=== PATIENT | female | born 1975 | race Caucasian/White ===

== ENCOUNTER 2019-08-29 09:23 | Outpatient (CLI) | payer BC, SELFPAY ==
--- NOTE | ~2019-08-29 | US_ITS ---
EXAMINATION: US venous doppler [facility] DATE: 08/29/2019 10:22 INDICATION: Left calf pain. TECHNIQUE: Grayscale ultrasound images without and with compression and Doppler ultrasound images of the left lower extremity veins were obtained. COMPARISON: Ultrasound 06/07/2019 FINDINGS: The visualized portions of left common femoral vein, profunda (deep) femoral vein, femoral vein, popl iteal vein, posterior tibial veins, and greater saphenous vein outflow are patent. There is thrombus in the left peroneal veins. IMPRESSION: 1. Deep vein thrombosis involving the left peroneal veins. Reviewed, dictated and finalized at location A. PATIONAL MEDICINE SPECIALIST
== END 2019-08-29 09:24 | disposition home or self-care (01) ==
PROVIDERS: PCP Family Medicine; Visit Provider Internal Medicine Hematology & Oncology
DX: I82.452 Acute embolism and thrombosis of left peroneal vein (principal)
CPT/HCPCS: 93971

== ENCOUNTER 2019-09-03 09:18 | Outpatient (CLI) | payer BC, SELFPAY ==
[2019-09-03 09:53] LABS: INR 1.6; Prothrombin Time 18.5 Seconds (11.1-14.7)
== END 2019-09-03 09:19 | disposition home or self-care (01) ==
PROVIDERS: PCP Family Medicine; Visit Provider Internal Medicine Hematology & Oncology
DX: I82.412 Acute embolism and thrombosis of left femoral vein (principal); Z79.01 Long term (current) use of anticoagulants
CPT/HCPCS: 36415; 85610

== ENCOUNTER 2019-12-01 08:11 | Outpatient (CLI) | payer BC, SELFPAY ==
--- NOTE | ~2019-12-01 | US_ITS ---
EXAMINATION: US venous doppler [facility] DATE: 12/01/2019 09:01 INDICATION: Left lower limb swelling. TECHNIQUE: Grayscale ultrasound images without and with compression and Doppler ultrasound images of the left lower extremity veins were obtained. COMPARISON: Ultrasound 08/29/2019 FINDINGS: The visualized portions of left common femoral vein, profunda (deep) femoral vein, popliteal vein, pe roneal veins, and greater saphenous vein outflow are patent. There is thrombus in left femoral and po sterior tibial veins. IMPRESSION: 1. Deep vein thrombosis involving left femoral and posterior tibial veins. Reviewed, dictated and finalized at location A.
== END 2019-12-01 08:12 | disposition home or self-care (01) ==
PROVIDERS: PCP Family Medicine; Visit Provider Internal Medicine Hematology & Oncology
DX: I82.412 Acute embolism and thrombosis of left femoral vein (principal); I82.442 Acute embolism and thrombosis of left tibial vein
CPT/HCPCS: 93971

== ENCOUNTER 2019-12-01 08:59 | Outpatient (RCR) | payer BC, SELFPAY ==
[2019-09-08 11:04] LABS: INR 1.5
[2019-09-15 11:55] LABS: INR 2.2; Prothrombin Time 24.1 Seconds (11.1-14.7)
[2019-09-22 11:04] LABS: INR 1.8
[2019-10-06 11:54] LABS: INR 1.6; Prothrombin Time 18.3 Seconds (11.1-14.7)
[2019-10-20 09:50] LABS: INR 3.2; Prothrombin Time 32.3 Seconds (11.1-14.7)
[2019-11-17 12:26] LABS: INR 2.8; Prothrombin Time 28.9 Seconds (11.1-14.7)
[2019-12-01 10:49] LABS: INR 2.9; Prothrombin Time 29.4 Seconds (11.1-14.7)
== END 2019-12-07 23:59 | disposition home or self-care (01) ==
LOC: ANHLAB 08:59
PROVIDERS: PCP Family Medicine; Visit Provider Internal Medicine Hematology & Oncology
DX: I82.412 Acute embolism and thrombosis of left femoral vein (principal); Z79.01 Long term (current) use of anticoagulants
CPT/HCPCS: 36415; 85610

== ENCOUNTER 2020-01-19 12:53 | Outpatient (RCR) | payer BC, SELFPAY ==
[2019-12-22 12:02] LABS: INR 3.9; Prothrombin Time 37.7 Seconds (11.1-14.7)
[2020-01-05 09:44] LABS: INR 4.1; Prothrombin Time 39.2 Seconds (11.1-14.7)
[2020-01-19 16:45] LABS: INR 2.8; Prothrombin Time 28.9 Seconds (11.1-14.7)
== END 2020-03-21 23:59 | disposition home or self-care (01) ==
LOC: ANHLAB 12:53
PROVIDERS: PCP Family Medicine; Visit Provider Internal Medicine Hematology & Oncology
DX: Z51.81 Encounter for therapeutic drug level monitoring (principal); I82.412 Acute embolism and thrombosis of left femoral vein; Z79.01 Long term (current) use of anticoagulants
CPT/HCPCS: 36415; 85610

== ENCOUNTER 2020-02-07 08:24 | Outpatient (CLI) | payer BC, SELFPAY ==
[2020-02-07 08:53] LABS: Basophils Percent Auto 0.6 % (0.2-1.2); Eosinophils Absolute Auto 0.1 K/mm3 (0-0.3); Hematocrit 41.1 % (37.0-47.0); Hemoglobin 13.5 g/dL (12.0-15.0); Immature Granulocyte Absolute 0.01 K/mm3 (0.00-0.031); Immature Granulocyte Percent A 0.1 % (0-0.5); Lymphocytes Absolute Auto 1.78 K/mm3 (0.9-3.2); Mean Corpuscular HGB Conc 32.8 g/dl (32-36); Mean Corpuscular Hemoglobin 27.8 pg (26-34); Mean Corpuscular Volume 84.6 fl (80-100); Mean Platelet Volume 10.1 fl (7.4-10.4); Monocytes Absolute Auto 0.6 K/mm3 (0.1-0.6); Monocytes Percent Auto 7.9 % (2.6-8.5); Neutrophils Absolute Auto 4.6 K/mm3 (1.3-6.7); Neutrophils Percent Auto 64.4 % (45.5-73.1); Platelet Count Result 240 k/mm3 (150-375); Red Blood Count 4.86 M/mm3 (4.2-5.4); Red Cell Distribution Width 13.3 % (11.5-14.5); White Blood Count 7.1 K/mm3 (4.5-10.0)
[2020-02-07 12:43] LABS: Alanine Aminotransferase 31 U/L (4-35); Albumin Level 4.3 g/dL (3.5-5.1); Alkaline Phosphatase 72 U/L (38-126); Anion Gap 8 mmol/L (8-16); Aspartate Amino Transferase 30 U/L (14-36); Bilirubin,Total 0.6 mg/dL (0.2-1.3); Blood Urea Nitrogen 13 mg/dL (7-17); Calcium 9.5 mg/dL (8.4-10.2); Carbon Dioxide 28 mmol/L (22-30); Chloride 97 mmol/L (98-107); Cholesterol 175 mg/dL (0-200); Estimated Glomerular Filt Rate > 60; Glucose 98 mg/dL (65-105); HDL Direct 61 mg/dL; INR 2.4; Potassium 4.2 mmol/L (3.4-5.0); Prothrombin Time 25.9 Seconds (11.1-14.7); Sodium 133 mmol/L (137-145); Triglycerides 46 mg/dL (<150)
[2020-02-07 12:54] LABS: LDL Cholesterol Direct 99 mg/dL
== END 2020-02-07 08:25 | disposition home or self-care (01) ==
PROVIDERS: PCP Family Medicine; Visit Provider Internal Medicine Hematology & Oncology
DX: Z00.00 Encounter for general adult medical examination without abnormal findings (principal)
CPT/HCPCS: 36415; 80053; 80061; 84443; 85025; 85610

== ENCOUNTER 2020-04-11 10:21 | Outpatient (CLI) | payer BC, SELFPAY | END 2020-04-11 10:22 | disposition home or self-care (01) | LOC: ANHLAB 10:23 | PROVIDERS: PCP Family Medicine; Visit Provider Internal Medicine Hematology & Oncology | DX: I82.412 Acute embolism and thrombosis of left femoral vein (principal) | CPT/HCPCS: 36415; 85520 ==

== ENCOUNTER → 2021-04-10 09:28 | Outpatient (CLI) | payer BC, SELFPAY ==
--- NOTE | ~2021-04-10 | MR_ITS ---
EXAMINATION: MR ankle RT wo con DATE: 04/10/2021 10:44 INDICATION: Posterior tibial tendinitis with right foot and ankle pain TECHNIQUE: Magnetic resonance imaging (MRI) of the right ankle was performed without intravenous cont rast. Sequences included sagittal, coronal, and axial proton-density weighted fast spin echo without and with fat saturation. COMPARISON: Right foot and ankle radiographs dated 03/28/2021 FINDINGS: Medial ankle ligaments: Deep deltoid ligament is normal. There is thickening, increased signal and surrounding edema along th e anterior aspect of the superficial deltoid ligament consistent with partial tear. There is also par tial tear of the superomedial component of the spring ligament complex which appears attenuated dista lly at its navicular insertion. The medial plantar oblique and infra plantar lateral components of th e spring ligament complex remain normal. Lateral ankle ligaments: The anterior and posterior inferior tibiofibular ligaments are normal. The anterior talofibular and c alcaneofibular ligaments are normal. Wall thickening and mild increased signal along the posterior ta lofibular ligament without surrounding edema to suggest acute injury which could represent scarring r elated to chronic sprain. Tendons: Achilles tendon is normal. The peroneus longus and brevis tendons are normal. The tibialis anterior a nd extensor hallucis longus and extensor digitorum longus tendons are normal. The flexor digitorum lo ngus and flexor hallucis longus tendons are normal. There is fluid extending along the tibialis poste rior tendon sheath consistent with mild tenosynovitis. There is fusiform thickening of the distal tib ialis posterior tendon consistent with mild tendinopathy with longitudinal split tear centered at the level of the tip of the medial malleolus. Plantar fascia: Small plantar cranial spur with mild thickening of the proximal plantar aponeurosis. There is mild [place] rrounding soft tissue edema. Findings consistent with mild acute on chronic plantar fasciitis. Bones/other: Bone alignment is normal. There is mild marrow edema at the tip of the lateral malleolus and at the p osterolateral margin of the talus on either side of the posterior talofibular ligament with adjacent small os trigonum but without abnormal marrow signal. Which is of indeterminate etiology or significa nce. Otherwise normal bone marrow signal throughout with no fracture or pathologic marrow replacing p rocess.. Mild osteoarthritis at the talonavicular joint with inferior predominant nonuniform joint sp farzad narrowing. Remaining joint spaces appear normal. Sinus Tarsi and tarsal tunnel are unremarkable. Fluid: Increased small talonavicular joint effusion. Visualized amount fluid in the remaining joint spaces. Small ganglion cyst with mild synovitis along the posterior margin of the and posterior talofibular l igament. IMPRESSION: 1. Partial tear of the anterior superficial deltoid ligament and the superomedial component of the sp ring ligament complex. 2. Mild tibialis posterior tenosynovitis with mild tendinopathy and longitudinal split tear. 3. Mild thickening and increased signal of the posterior talofibular ligament with mild edema underly ing its fibular and talar insertions along with small os trigonum which suggests likely posterior ank le impingement. Differential includes scarring related to chronic sprain although this would be unusu al given the normal appearance of the remaining lateral stabilizing ligaments of the ankle. 4. Mild acute on chronic plantar fasciitis. 5. 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 Reviewed, dictated and finalized at location A.
== END ==
PROVIDERS: Visit Provider Orthopaedic Surgery
DX: M65.861 Other synovitis and tenosynovitis, right lower leg (principal); T14.8XXA Other injury of unspecified body region, initial encounter; M25.471 Effusion, right ankle
CPT/HCPCS: 73721

== ENCOUNTER 2022-09-05 11:36 | Outpatient (CLI) | payer BC, SELFPAY ==
--- NOTE | ~2022-09-05 | US_ITS ---
US venous doppler [facility] DATE: 09/05/2022 12:56 INDICATION: Prior deep venous thrombosis of left femoral and posterior tibial veins ( venous duplex examination of left lower extremity) TECHNIQUE: Real-time and color flow imaging and Doppler analysis of the veins of the left lower extre mity COMPARISON: None FINDINGS: The left greater saphenous vein is patent. There is spontaneous and phasic flow and normal augmentation and color flow signal and normal compression of the deep veins of the left lower extremi ty. IMPRESSION: No evidence of deep venous thrombosis of left leg Reviewed, dictated and finalized at Location A. Reviewed, dictated and finalized at location L. RA REPAIRER
== END 2022-09-05 11:37 | disposition home or self-care (01) ==
PROVIDERS: PCP Family Medicine; Visit Provider Internal Medicine Hematology & Oncology
DX: I82.412 Acute embolism and thrombosis of left femoral vein (principal)
CPT/HCPCS: 93971

== ENCOUNTER 2022-09-27 02:09 | Day surgery (SDC) | payer BC, SELFPAY ==
[2022-09-19 11:01] VITALS: BMI 34.4
--- NOTE | 2022-09-27 11:29 | PM.HPGS ---
History of Present Illness History of Present Illness Consent: Risks, benefits, and alternatives have been discussed and questions answered. Patient agrees to proceed with procedure. Chief complaint: positive cologuard test Narrative: Emily Chappell is a 47 year old female Presents for screening colonoscopy. Patient's current weight appetite bowel movements are normal. Patient denies abdominal pain. She has had no bleeding. Family history noncontributory. Recent Cologuard test was found to be positive. Patient presents today for screening colonoscopy. Review of Systems Review of Systems: Review of systems noncontributory. [facility] Past Medical History Medical History Abnormal Pap smear of cervix 02/07/2011 (inadequate squamous cells) Arthritis of ankle, right, degenerative Arthritis of left subtalar joint Capsulitis of right ankle Elevated liver enzymes Factor V Leiden Heterozygous factor V Leiden mutation History of DVT (deep vein thrombosis) left leg HTN (hypertension) Hx of intermediate frame tender use of blood thinners Pes planus of both feet Positive ERICK (antinuclear antibody) Posterior tibial tendinitis of right lower extremity Posterior tibial tendinitis, left leg Screening mammogram, encounter for Surgical History Surgical History History of appendectomy (~1992) History of bilateral salpingectomy (03/29/21) History of cholecystectomy (05/11/14) History of dilation and curettage (03/29/21) hscope d&c/endometrial ablation/(B) lscope salpingectomy History of endometrial ablation (03/29/21) hscope d&c/endometrial ablation/(B) lscope salpingectomy History of nasal septoplasty Hx of laparoscopic gastric banding (~2009) Family History Family History Mother Diabetes mellitus Hypertension Sibling Hypertension sisters x2 Breast cancer sister Father Family history of pancreatic cancer Family history of coronary artery disease Malignant tumor of pancreas Grandparent Heart disease paternal grandfather-- Malignant tumor of cervix maternal grandmother-- Other Family history of arthritis Family history of cardiovascular disease Social History Social History Social History: Smoking status: Never smoker Second hand tobacco smoke exposure: No Alcohol intake: current Substance use: never Substance use type: does not use Living arrangements: with family Additional living arrangements comments: Occupation/Education: other Additional occupation/education comments: homemaker Gender identity (if verbalized by the patient): Female Sexual Orientation (if Verbalized by the Patient): Straight or Heterosexual Spiritual care concerns: No Meds Home Medications and Allergies Home Medications Medication Instructions Recorded Confirmed Type rivaroxaban 20 mg tablet (Xarelto) 20 mg PO DAILY #90 tabs 08/13/21 09/19/22 Rx lisinopril 20 mg tablet 20 mg PO DAILY #90 tabs 08/08/22 09/19/22 Rx semaglutide (weight loss) 0.5 0.5 mg (0.5 mL) subcut WEEKLY #2 mL 09/13/22 09/19/22 Rx mg/0.5 mL subcutaneous pen injector (Wegovy) Adults Multivitamin 1 tab-cap PO DAILY 09/19/22 09/19/22 History calcium citrate 400 mg PO DAILY 09/19/22 09/19/22 History cranberry 500 mg capsule 1,000 mg PO DAILY 09/19/22 09/19/22 History sodium,potassium,mag sulfates 17.5 See Rx Instructions PO .COMPLEX 09/19/22 09/19/22 Rx gram-3.13 gram-1.6 gram oral soln #354 mL (Suprep Bowel Prep Kit) triamterene 37.5 1 tablet PO DAILY 09/19/22 09/19/22 History mg-hydrochlorothiazide 25 mg tablet Allergies Allergy/AdvReac Type Severity Reaction Status Date / Time No Known Allergies Allergy Verified 09/19/22 11:02 Exam Narrative:
[2022-09-27 11:35] VITALS: BP 135/72; PULSE 96; RESP 18; TEMP 36.4; O2SAT 100; BMI 34.7
[2022-09-27] MEDS: LACTATED RINGERS 1,000 ML 150 ML IV CONT (11:48)
--- NOTE | 2022-09-27 11:56 | WPDANESEPPF ---
Anes - Initial Pre Proc Eval Procedure: Operation Date: 09/27/22 13:00 Proposed Procedures p Colonoscopy - Ziyad Carbajal MD Date/Time: 09/27/22 11:56 Surgeon: Ziyad Carbajal MD Pre Op Diagnosis: positive cologuard test Patient Data Age: 47 Gender: F Height: 1.63 m Weight: 91.6 kg Last Vital Signs Temp 97.6 F 09/27/22 11:35 Pulse 96 09/27/22 11:35 Resp 18 09/27/22 11:35 BP 135/72 09/27/22 11:35 Pulse Ox 100 09/27/22 11:35 O2 Del Method Room Air 09/27/22 11:35 Allergies Allergy/AdvReac Type Severity Reaction Status Date / Time No Known Allergies Allergy Verified 09/27/22 11:33 Home Medications Medication Instructions Recorded Confirmed Type rivaroxaban 20 mg tablet (Xarelto) 20 mg PO DAILY #90 tabs 08/13/21 09/27/22 Rx lisinopril 20 mg tablet 20 mg PO DAILY #90 tabs 08/08/22 09/27/22 Rx semaglutide (weight loss) 0.5 0.5 mg (0.5 mL) subcut WEEKLY #2 mL 09/13/22 09/27/22 Rx mg/0.5 mL subcutaneous pen injector (Wegovy) Adults Multivitamin 1 tab-cap PO DAILY 09/19/22 09/27/22 History calcium citrate 400 mg PO DAILY 09/19/22 09/27/22 History cranberry 500 mg capsule 1,000 mg PO DAILY 09/19/22 09/27/22 History triamterene 37.5 1 tablet PO DAILY 09/19/22 09/27/22 History mg-hydrochlorothiazide 25 mg tablet Patient hx anesthesia problems: none Family hx anesthesia problems: none Results Review: All pre-operative results and documents have been reviewed as part of the pre-operative evaluation. [facility] Past Medical History Medical History Abnormal Pap smear of cervix 02/07/2011 (inadequate squamous cells) Arthritis of ankle, right, degenerative Arthritis of left subtalar joint Capsulitis of right ankle Elevated liver enzymes Factor V Leiden Heterozygous factor V Leiden mutation History of DVT (deep vein thrombosis) left leg HTN (hypertension) Hx of prison use of blood thinners Pes planus of both feet Positive ERICK (antinuclear antibody) Posterior tibial tendinitis of right lower extremity Posterior tibial tendinitis, left leg Screening mammogram, encounter for Surgical History Surgical History History of appendectomy (~1992) History of bilateral salpingectomy (03/29/21) History of cholecystectomy (05/11/14) History of dilation and curettage (03/29/21) hscope d&c/endometrial ablation/(B) lscope salpingectomy History of endometrial ablation (03/29/21) hscope d&c/endometrial ablation/(B) lscope salpingectomy History of nasal septoplasty Hx of laparoscopic gastric banding (~2009) Family History Family History Mother Diabetes mellitus Hypertension Sibling Hypertension sisters x2 Breast cancer sister Father Family history of pancreatic cancer Family history of coronary artery disease Malignant tumor of pancreas Grandparent Heart disease paternal grandfather-- Malignant tumor of cervix maternal grandmother-- Other Family history of arthritis Family history of cardiovascular disease Social History Social History Social History: Smoking status: Never smoker Second hand tobacco smoke exposure: No Alcohol intake: current Substance use: never Substance use type: does not use Living arrangements: with family Additional living arrangements comments: 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
[2022-09-27 12:52] VITALS: BP 111/69; PULSE 98; RESP 19; O2SAT 100
[2022-09-27 13:02] VITALS: BP 128/69; PULSE 95; RESP 13; O2SAT 100
[2022-09-27 13:12] VITALS: BP 122/70; PULSE 91; RESP 14; O2SAT 100
== END 2022-09-27 13:30 | disposition home or self-care (01) ==
PROVIDERS: PCP Family Medicine; Visit Provider Internal Medicine Gastroenterology
PROC: 0DJD8ZZ Inspection of Lower Intestinal Tract, Via Natural or Artificial Opening Endoscopic (ICD-10-PCS; CPT 45378; principal; 2022-09-27 13:00)
DX: R19.5 Other fecal abnormalities (principal); K64.8 Other hemorrhoids; D68.51 Activated protein C resistance; I10 Essential (primary) hypertension; Z86.718 Personal history of other venous thrombosis and embolism; Z79.01 Long term (current) use of anticoagulants; Z79.899 Other long term (current) drug therapy; Z98.84 Bariatric surgery status; E66.9 Obesity, unspecified; Z68.34 Body mass index [BMI] 34.0-34.9, adult
CPT/HCPCS: 45378; J2704; J7120

== ENCOUNTER 2024-11-11 07:08 | Outpatient (CLI) | payer BC, SELFPAY ==
--- NOTE | ~2024-11-11 | MM_ITS ---
EXAMINATION: MM screening [facility] BI w [place] HISTORY: Screening TECHNIQUE: Craniocaudal and mediolateral oblique 3-D tomosynthesis images were obtained and synthetic 2-D images were generated. CAD analysis was submitted and interpreted. COMPARISON: Comparison to multiple prior studies sequentially, with oldest reviewed study dated 01/27. BREAST PARENCHYMAL COMPOSITION: Not Dense: The breasts are almost entirely fatty. FINDINGS: There is no evidence of suspicious mass, calcification, or architectural distortion to sugg est malignancy in either breast. There has been no suspicious interval change. IMPRESSION: 1. No mammographic evidence of malignancy. 2. Recommend routine screening mammography in one year. BI-RADS Category 1: Negative Reviewed, dictated and finalized at location A.
== END 2024-11-11 07:09 | disposition home or self-care (01) ==
LOC: MICIMG 07:09
PROVIDERS: PCP Family Medicine; Visit Provider Obstetrics & Gynecology
DX: Z12.31 Encounter for screening mammogram for malignant neoplasm of breast (principal)
CPT/HCPCS: 77063; 77067

== ENCOUNTER 2025-04-25 08:08 | Outpatient (CLI) | payer BC, SELFPAY ==
--- NOTE | ~2025-04-25 | US_ITS ---
ULTRASOUND ABDOMEN LIMITED (RIGHT UPPER QUADRANT) Clinical History: elevated liver enzymes Comparison: 12/14/2018 Technique: Right upper quadrant sonography Findings: Liver: Normal size. Echogenic. No intrahepatic biliary ductal dilatation. Normal hepatopedal flow main portal vein. Common Duct: Normal caliber. 6 mm. Gallbladder: Removed. Pancreas: Mostly obscured by bowel gas. IMPRESSION: 1. Mild hepatic steatosis and/or hepatocellular disease. 2. No acute abnormality. Reviewed, dictated and finalized at location R.
--- NOTE | ~2025-04-25 | US_ITS ---
US thyroid INDICATION: Thyroid goiter TECHNIQUE: Real-time sonographic images of the thyroid gland were obtained. COMPARISON: No prior studies for comparison. FINDINGS: The right thyroid lobe measures 5 x 1.6 x 1.8 cm. The left thyroid lobe measures 4.6 x 1.3 x 1.6 cm. There is normal echotexture and echogenicity throughout the thyroid gland. No discrete nodules identified. Normal vascular flow is present. IMPRESSION: 1. Normal thyroid without discrete nodule or abnormal vascularity. Reviewed, dictated and finalized at location B.
== END 2025-04-25 08:09 | disposition home or self-care (01) ==
PROVIDERS: PCP Internal Medicine Endocrinology, Diabetes & Metabolism; Visit Provider Internal Medicine Endocrinology, Diabetes & Metabolism
DX: E04.9 Nontoxic goiter, unspecified (principal); R74.01 Elevation of levels of liver transaminase levels
CPT/HCPCS: 76536; 76705